=== PATIENT | male | born 1945 | race Hispanic/Latino ===

== ENCOUNTER 2020-04-30 22:40 | Inpatient (IN) | payer MEDICARE ==
[~2020-04-30] VITALS: Ht 165.1 cm; Wt 75.5 kg
[2020-04-30 23:25] LABS: BASOPHILS % (AUTO) 0.2 % (0.0-5.0); HEMATOCRIT 30.2 % (42-54); LYMPHOCYTES % (AUTO) 6.3 % (21.0-51.0); MEAN CORPUSCULAR HEMOGLOBIN 31.3 pg (27.0-33.0); MEAN CORPUSCULAR HGB CONC 33.1 g/dL (32.0-36.0); MEAN CORPUSCULAR VOLUME 94.4 fL (79-99); MONOCYTES % (AUTO) 3.3 % (3.0-13.0); NEUTROPHILS % (AUTO) 89.2 % (40.0-77.0); NUCLEATED RED BLOOD CELLS 0.2 % (0.0-0.19); PLATELET COUNT (AUTO) 183 K/uL (130-400); RED CELL DISTRIBUTION WIDTH 12.6 % (11.0-15.5); WHITE BLOOD COUNT (AUTO) 11.4 K/uL (4.8-10.8)
[2020-04-30 23:50] LABS: INR 0.98 (0.85-1.15); PARTIAL THROMBOPLASTIN TIME 29.6 SEC (26.3-35.5); PROTHROMBIN TIME 10.6 SEC (9.6-11.6)
[2020-05-01 00:08] LABS: ALBUMIN 2.9 g/dL (3.5-5.0); BILIRUBIN,TOTAL 0.4 mg/dL (0.2-1.0); POTASSIUM 5.6 mmol/L (3.5-5.1); TOTAL PROTEIN, SERUM 7.3 g/dL (6.0-8.3)
[2020-05-01 00:14] LABS: CREATININE 8.8 mg/dL (0.5-1.5)
[2020-05-01] MEDS ORDERED: SODIUM CHLORIDE 0.9% 1000ML 1,000 ML IV SCH (02:25)
[2020-05-01] MEDS ORDERED: ERGOCALCIFEROL (VITAMIN D2) 50,000 UNIT CAPSULE PO SCH (02:30)
[2020-05-01] MEDS: AZITHROMYCIN 500MG+NS 250ML 250 ML IV SCH (02:30)
[2020-05-01] MEDS ORDERED: HYDRALAZINE HCL 20 MG/ML VIAL IV PRN (02:30)
[2020-05-01] MEDS: DOXYCYCLINE 100MG+NS 250ML 250 ML IV SCH ×2 (02:30→14:04)
[2020-05-01] MEDS ORDERED: ERGOCALCIFEROL (VITAMIN D2) 50,000 UNIT CAPSULE ONE (02:48)
[2020-05-01] MEDS ORDERED: AZITHROMYCIN 500MG+NS 250ML 250 ML IV ONE (02:52)
[2020-05-01] MEDS ORDERED: DOXYCYCLINE 100MG+NS 250ML 250 ML IV ONE (04:08)
[2020-05-01 04:44] LABS: APPEARANCE,URINE Turbid (CLEAR); BILIRUBIN,URINE Negative (NEGATIVE); COLOR,URINE Yellow (YELLOW); GLUCOSE, URINE (UA) Negative (NEGATIVE); KETONES,URINE Negative (NEGATIVE); LEUKOCYTE ESTERASE ,URINE Negative (NEGATIVE); NITRATE,URINE Negative (NEGATIVE); OCCULT BLOOD,URINE Small (NEGATIVE); PROTEIN,URINE 300 mg/dL (NEGATIVE)
[2020-05-01 04:47] LABS: BASOPHILS % (AUTO) 0.1 % (0.0-5.0); HEMATOCRIT 27.1 % (42-54); LYMPHOCYTES % (AUTO) 7.5 % (21.0-51.0); MEAN CORPUSCULAR HEMOGLOBIN 31.7 pg (27.0-33.0); MEAN CORPUSCULAR HGB CONC 33.2 g/dL (32.0-36.0); MEAN CORPUSCULAR VOLUME 95.4 fL (79-99); NEUTROPHILS % (AUTO) 88.4 % (40.0-77.0); PLATELET COUNT (AUTO) 164 K/uL (130-400); RED BLOOD CELL COUNT(AUTO) 2.84 MIL/uL (4.50-6.20); RED CELL DISTRIBUTION WIDTH 12.7 % (11.0-15.5); WHITE BLOOD COUNT (AUTO) 10.9 K/uL (4.8-10.8)
[2020-05-01 05:04] LABS: ALBUMIN 2.4 g/dL (3.5-5.0); BILIRUBIN,TOTAL 0.4 mg/dL (0.2-1.0); POTASSIUM 5.6 mmol/L (3.5-5.1)
[2020-05-01 05:06] LABS: AMORPHOUS SEDIMENT,UR Moderate /LPF (None Seen); BACTERIA,URINE Few /HPF (None Seen); RBC,URINE 0-1 /HPF (0-1); SQUAMOUS EPITHELIAL CELL,UR 0-2 /HPF (0-2); WBC,URINE 0-1 /HPF (0-1)
[2020-05-01 05:09] LABS: CREATININE 8.6 mg/dL (0.5-1.5)
[2020-05-01 05:32] VITALS: BP 126/45
--- NOTE | 2020-05-01 05:57 | NUR ---
NEW ADMIT INCOMPLETE NEW ADMISSION DATA BASE AND PAST MEDICAL HX IS INCOMPLETE DUE TO: NO PT INFORMATION. PT DROPPED OFF AT ED, PT IS POOR HISTORIAN AND LETHARGIC. CONTACT NUMBER IS DISCONNECTED. COMPLETED INFORMATION TO THE BEST OF MY ABILITY.
[2020-05-01] MEDS: INSULIN HUMULIN R 100 UNIT/ML 3ML SQ SCH ×3 (06:00→17:16)
[2020-05-01 08:14] VITALS: BP 131/53
[2020-05-01] MEDS: 1/2 NORMAL SALINE 1,000 ML IV SCH ×2 (08:45→21:38)
[2020-05-01] MEDS: HEPARIN SODIUM 5000UNIT/ML 1ML VIAL SQ SCH ×3 (09:00→21:35)
[2020-05-01] MEDS ORDERED: ACETYLCYSTEINE 600 MG CAPSULE PO SCH (09:00)
[2020-05-01] MEDS ORDERED: DEXTROSE 5 %-0.45 % NACL 1,000 ML IV ONE (09:31)
[2020-05-01] MEDS: FAMOTIDINE/PF 20 MG/2 ML VIAL IV SCH (10:31)
[2020-05-01] MEDS: ASCORBIC ACID 500 MG TAB PO SCH (10:31)
[2020-05-01] MEDS: SODIUM BICARBONATE 650 MG TAB PO SCH ×2 (10:31→21:09)
[2020-05-01] MEDS: ZINC SULFATE 220 CAPSULE PO SCH (10:31)
[2020-05-01] MEDS: SODIUM POLYSTYRENE SULFONATE 15 GM/60 ML ML RC SCH (10:31)
[2020-05-01] MEDS: METHYLPREDNISOLONE SOD SUCC 40MG/ML 1ML IVP SCH ×3 (10:33→21:09)
[2020-05-01 11:00] LABS: CRP QUANTITATIVE 164.9 mg/L (0.00-9.0)
[2020-05-01 11:41] VITALS: BP 141/80
--- NOTE | 2020-05-01 11:42 | NUR ---
NO "NEXT OF KIN" INFORMATION AVAILABLE. PATIENT UNABLE TO ANSWER QUESTIONS. CALLED EMS AT [phone] AND AFTER SPEAKING WITH DISPATCHER, OBTAINED CONTACT INFORMATION. CALLED NUMBER GIVEN OF PATIENT'S GIRLFRIEND, VALENTINE NEWMAN, . SPOKE WITH VALENTINE AND SHE INFORMED ME THAT PATIENT HAS NO FAMILY LOCALLY, ALL HIS FAMILY IS IN [place]. SHE WILL ATTEMPT TO MAKE CONTACT WITH THEM AND CALL NURSING BACK WITH PHONE NUMBER(S). SHE STATES SHE CALLED EMS DUE TO PATIENT BEING WEAK, NOT EATING AND VERBALIZING NEEDS FOR SEVERAL DAYS. REPORTED OFF TO PRIMARY NURSE, CHRISTOPHER.
--- NOTE | 2020-05-01 11:58 | NUR ---
CHART CHECK COMPLETED. Pt IS A 75 Y.O. MALE ADMITTED SECONDARY TO ACUTE RENAL FAILURE, DELIRIUM, +COVID. Pt HAS A PAST MEDICAL HISTORY SIGNIFICANT FOR DMII, HYPERTENSION, CAD. Pt NPO AT THIS TIME. PLEASE REQUEST FORMAL SKILLED SPEECH/SWALLOW EVALUATION WHEN CURRENT MENTAL STATUS IMPROVES AND Pt IS ABLE TO PARTICIPATE. Addendum: 05/01/20 at 1203 by ROSSY GILES, [facility] Amended: Links added.
--- NOTE | 2020-05-01 15:09 | NUR ---
note attempted to speak to pt, however not awake enough to respond butm he stated he has a girlfriend, call made to girlfriend Jana Kincaid, . states pt resides at home with her, he normally is independent with ambulation and adls. no dme.states does get weak, and lethargic when he gets sick. see dr dimas as an OP. but is not on dialysis. [facility] dc plan is back to home at time of dc. [facility] pt does have some family members in [place],, but [facility] she will try to reach out to them and see if she can get other contact information. . discussed POA/Advanced directives. perhaps once pt is more stable. verbalizes understanding. Addendum: 05/01/20 at 1514 by XIN LAM CM Amended: Links added.
[2020-05-01 16:32] VITALS: BP 126/76
[2020-05-01 20:00] VITALS: BP 132/59
[2020-05-01] MEDS: ACETYLCYSTEINE 20% 200MG/ML 4ML VIAL PO SCH ×2 (21:00→21:09)
[2020-05-02] VITALS: BP 153/72
[2020-05-02] MEDS ORDERED: DOXYCYCLINE 100MG+NS 250ML 250 ML IV ONE (02:29)
[2020-05-02] MEDS: AZITHROMYCIN 500MG+NS 250ML 250 ML IV SCH (02:54)
[2020-05-02] MEDS: DOXYCYCLINE 100MG+NS 250ML 250 ML IV SCH ×2 (03:40→13:52)
[2020-05-02 03:53] LABS: BASOPHILS % (AUTO) 0.1 % (0.0-5.0); HEMATOCRIT 23.4 % (42-54); MEAN CORPUSCULAR HEMOGLOBIN 30.5 pg (27.0-33.0); MEAN CORPUSCULAR HGB CONC 32.5 g/dL (32.0-36.0); PLATELET COUNT (AUTO) 160 K/uL (130-400); RED BLOOD CELL COUNT(AUTO) 2.49 MIL/uL (4.50-6.20); RED CELL DISTRIBUTION WIDTH 12.9 % (11.0-15.5); WHITE BLOOD COUNT (AUTO) 8.1 K/uL (4.8-10.8)
[2020-05-02 04:00] VITALS: BP 113/56
[2020-05-02 04:16] LABS: ALBUMIN 2.1 g/dL (3.5-5.0); BILIRUBIN,TOTAL 0.4 mg/dL (0.2-1.0); CRP QUANTITATIVE 152.9 mg/L (0.00-9.0); PHOSPHORUS 4.4 mg/dL (2.5-4.9); POTASSIUM 4.9 mmol/L (3.5-5.1); TOTAL PROTEIN, SERUM 6.6 g/dL (6.0-8.3)
[2020-05-02 04:40] LABS: CREATININE 8.2 mg/dL (0.5-1.5)
[2020-05-02] MEDS: DEXTROSE 5%-WATER 1,000 ML IV SCH ×2 (05:55→15:41)
[2020-05-02] MEDS: INSULIN HUMULIN R 100 UNIT/ML 3ML SQ SCH ×5 (05:56→20:37)
--- NOTE | 2020-05-02 08:10 | NUR ---
JOURDAN AMAYA NP IS ROUNDING AT THIS TIME.
[2020-05-02] MEDS: SODIUM BICARBONATE 650 MG TAB PO SCH ×2 (08:31→19:43)
[2020-05-02] MEDS: FAMOTIDINE/PF 20 MG/2 ML VIAL IV SCH (08:31)
[2020-05-02] MEDS: ASCORBIC ACID 500 MG TAB PO SCH (08:31)
[2020-05-02] MEDS: ACETYLCYSTEINE 20% 200MG/ML 4ML VIAL PO SCH ×2 (08:31→19:43)
[2020-05-02] MEDS: ZINC SULFATE 220 CAPSULE PO SCH (08:31)
[2020-05-02] MEDS: SODIUM POLYSTYRENE SULFONATE 15 GM/60 ML ML RC SCH (08:32)
[2020-05-02] MEDS: METHYLPREDNISOLONE SOD SUCC 40MG/ML 1ML IVP SCH ×3 (08:32→19:43)
[2020-05-02] MEDS: HEPARIN SODIUM 5000UNIT/ML 1ML VIAL SQ SCH ×3 (08:33→19:44)
[2020-05-02 09:23] VITALS: BP 171/74
[2020-05-02 12:48] VITALS: BP 174/82
[2020-05-02 16:00] VITALS: BP 151/70
[2020-05-02 21:12] VITALS: BP 122/77
[2020-05-03 01:01] VITALS: BP 96/67
[2020-05-03] MEDS: AZITHROMYCIN 500MG+NS 250ML 250 ML IV SCH (01:31)
[2020-05-03] MEDS: DOXYCYCLINE 100MG+NS 250ML 250 ML IV SCH ×2 (01:31→15:33)
[2020-05-03 03:15] LABS: BASOPHILS % (AUTO) 0.1 % (0.0-5.0); HEMATOCRIT 22.7 % (42-54); LYMPHOCYTES % (AUTO) 4.5 % (21.0-51.0); MEAN CORPUSCULAR HEMOGLOBIN 31.5 pg (27.0-33.0); MEAN CORPUSCULAR HGB CONC 34.4 g/dL (32.0-36.0); MEAN CORPUSCULAR VOLUME 91.5 fL (79-99); MONOCYTES % (AUTO) 2.2 % (3.0-13.0); NEUTROPHILS % (AUTO) 92.2 % (40.0-77.0); PLATELET COUNT (AUTO) 181 K/uL (130-400); RED BLOOD CELL COUNT(AUTO) 2.48 MIL/uL (4.50-6.20); RED CELL DISTRIBUTION WIDTH 12.6 % (11.0-15.5); WHITE BLOOD COUNT (AUTO) 11.1 K/uL (4.8-10.8)
[2020-05-03 03:29] LABS: BILIRUBIN,TOTAL 0.5 mg/dL (0.2-1.0); CREATININE 7.6 mg/dL (0.5-1.5); CRP QUANTITATIVE 75.7 mg/L (0.00-9.0); MAGNESIUM 2.7 mg/dL (1.80-2.40); PHOSPHORUS 4.1 mg/dL (2.5-4.9); POTASSIUM 3.9 mmol/L (3.5-5.1); TOTAL PROTEIN, SERUM 6.5 g/dL (6.0-8.3)
[2020-05-03] MEDS: INSULIN HUMULIN R 100 UNIT/ML 3ML SQ SCH ×5 (05:35→20:09)
[2020-05-03 06:10] VITALS: BP 129/73
--- NOTE | 2020-05-03 06:35 | NUR ---
assessment Pt. did not answer me last night with his voice but he did follow instructions. he is on room air sating in the mid 90's. no skin issues. his am blood sugar is 165 no coverage needed. Pt. is still on d5w at 75ml/hr. vitals stable will continue to monitor.
[2020-05-03 08:00] VITALS: BP 146/71
[2020-05-03] MEDS: SODIUM POLYSTYRENE SULFONATE 15 GM/60 ML ML RC SCH (09:17)
[2020-05-03] MEDS: ZINC SULFATE 220 CAPSULE PO SCH (09:17)
[2020-05-03] MEDS: SODIUM BICARBONATE 650 MG TAB PO SCH ×2 (09:17→19:27)
[2020-05-03] MEDS: FAMOTIDINE/PF 20 MG/2 ML VIAL IV SCH (09:17)
[2020-05-03] MEDS: ASCORBIC ACID 500 MG TAB PO SCH (09:17)
[2020-05-03] MEDS: HEPARIN SODIUM 5000UNIT/ML 1ML VIAL SQ SCH ×3 (09:19→19:27)
[2020-05-03] MEDS: ACETYLCYSTEINE 20% 200MG/ML 4ML VIAL PO SCH ×2 (09:22→19:27)
[2020-05-03] MEDS: METHYLPREDNISOLONE SOD SUCC 40MG/ML 1ML IVP SCH ×2 (09:25→19:27)
[2020-05-03] MEDS: DEXTROSE 5%-WATER 1,000 ML IV SCH (09:26)
[2020-05-03 11:03] VITALS: BP 137/69
--- NOTE | 2020-05-03 11:10 | NUR ---
LOUIS BANKS CALL ME AND NOTIFY ME THE SHE FOUND THE PT ON THE FLOOR, IMMEDIATELY PT WAS ASSES AND CHECK, NO LACERATIONS OR ANY TYPE OF INJURES WERE SEEN. PT WAS ASK MULTIPLE QUESTIONS REGARDING THE INCIDENT AND HE VERBALIZED THAT HE DID NOT FALL THAT HE WAS TRYING TO GO TO THE BATHROOM AND WHEN HE STAND UP HE FEELS WEAK AND SLOWLY SIT IN THE FLOOR. WITH THE HELP OF SANG ORTA PT WAS PUT BACK ON BED. CHARGE NURSE AND CARSON ARAGON NP THAT WORK WITH DR. ARREAGA WERE NOTIFY ABOUT THE INCIDENT. PT WILL BE MONITOR FOR CHANGES.
--- NOTE | 2020-05-03 15:09 | NUR ---
contact phone #s partner/girlfriend Jana Kincaid [phone] [place] [phone]
[2020-05-03 15:56] VITALS: BP 142/71
[2020-05-03 20:00] VITALS: BP 166/79
[2020-05-03] MEDS: INSULIN GLARGINE 100 UNITS/ML 10 ML VIAL SQ SCH (20:09)
[2020-05-04 00:22] VITALS: BP 156/69
[2020-05-04] MEDS: AZITHROMYCIN 500MG+NS 250ML 250 ML IV SCH (02:37)
[2020-05-04] MEDS: DOXYCYCLINE 100MG+NS 250ML 250 ML IV SCH ×2 (02:37→14:07)
[2020-05-04] MEDS: INSULIN HUMULIN R 100 UNIT/ML 3ML SQ SCH ×7 (05:11→19:25)
[2020-05-04 05:25] VITALS: BP 137/73
--- NOTE | 2020-05-04 05:52 | NUR ---
ASSESSMENT PATIENT IS ALERT AND ORIENTED TIMES 1 TO SELF. HE DOES COOPERATE THOUGH. HE HAS A BUSCH CATHETER DRAINING CLEAR YELLOW URINE. AM BLOOD SUGAR IS 300 I GAVE HIM COVERAGE. VITALS ARE STABLE WILL CONTINUE TO MONITOR.
[2020-05-04 07:16] LABS: INR 1.07 (0.85-1.15); PARTIAL THROMBOPLASTIN TIME 33.4 SEC (26.3-35.5); PROTHROMBIN TIME 11.5 SEC (9.6-11.6)
[2020-05-04 08:00] VITALS: BP 119/58
[2020-05-04 08:00] LABS: ALBUMIN 2.1 g/dL (3.5-5.0); BILIRUBIN,TOTAL 0.4 mg/dL (0.2-1.0); CREATININE 7.3 mg/dL (0.5-1.5); CRP QUANTITATIVE 49.6 mg/L (0.00-9.0); PHOSPHORUS 4.9 mg/dL (2.5-4.9); POTASSIUM 3.5 mmol/L (3.5-5.1); TOTAL PROTEIN, SERUM 6.2 g/dL (6.0-8.3)
--- NOTE | 2020-05-04 08:00 | NUR ---
am shift assessment.
[2020-05-04] MEDS: SODIUM POLYSTYRENE SULFONATE 15 GM/60 ML ML RC SCH (08:45)
[2020-05-04] MEDS: HEPARIN SODIUM 5000UNIT/ML 1ML VIAL SQ SCH ×3 (09:00→19:55)
--- NOTE | 2020-05-04 09:00 | NUR ---
DR. HARRIS IN TO SEE PT. FROM HIS STANDPOINT PT. CAN BE DISCHARGED WHEN PRIMARY IS READY, PT. REFUSING DIALYSIS, AT TIMES PER OTHER ATTENDING NURSES, ALSO REFUSES SCHEDULED MEDICATIONS..
[2020-05-04] MEDS: ACETYLCYSTEINE 20% 200MG/ML 4ML VIAL PO SCH ×2 (10:09→19:53)
[2020-05-04] MEDS: SODIUM BICARBONATE 650 MG TAB PO SCH ×2 (10:09→19:54)
[2020-05-04] MEDS: METHYLPREDNISOLONE SOD SUCC 40MG/ML 1ML IVP SCH ×2 (10:09→19:52)
[2020-05-04] MEDS: FAMOTIDINE/PF 20 MG/2 ML VIAL IV SCH (10:09)
[2020-05-04] MEDS: ASCORBIC ACID 500 MG TAB PO SCH (10:10)
[2020-05-04] MEDS: ZINC SULFATE 220 CAPSULE PO SCH (10:10)
[2020-05-04 12:00] VITALS: BP 143/74
--- NOTE | 2020-05-04 12:53 | NUR ---
GOT OUT OF BED AND ALMOST FELL, VERY UNSTEADY ON HIS FEET, COUGHING AND SOB.
--- NOTE | 2020-05-04 15:00 | NUR ---
DR CORREA IN TO SEE PT. PT. DID NOT CO OPERATE, NO ORDERS GIVEN.
[2020-05-04 16:00] VITALS: BP 144/62
--- NOTE | 2020-05-04 18:00 | NUR ---
MOVED TO ROOM 406 EARLIER FOR CLOSER MONITORING.
[2020-05-04 19:32] VITALS: BP 165/77
[2020-05-04] MEDS: INSULIN GLARGINE 100 UNITS/ML 10 ML VIAL SQ SCH (19:56)
[2020-05-05] VITALS (7 sets, daily range): BP systolic 148–159; BP diastolic 66–94
[2020-05-05] MEDS: DOXYCYCLINE 100MG+NS 250ML 250 ML IV SCH (00:55)
[2020-05-05] MEDS: AZITHROMYCIN 500MG+NS 250ML 250 ML IV SCH (00:55)
--- NOTE | 2020-05-05 05:13 | NUR ---
assessment patient responded a few times to me last night. he did follow instructions. iv abx was given throughout the night. patient didnt seem to sleep much. blood sugar last night was 136 no coverage needed. vitals stable will continue to monitor.
[2020-05-05] MEDS: INSULIN HUMULIN R 100 UNIT/ML 3ML SQ SCH ×7 (05:33→21:00)
[2020-05-05] MEDS: SODIUM POLYSTYRENE SULFONATE 15 GM/60 ML ML RC SCH (07:51)
[2020-05-05] MEDS: ASCORBIC ACID 500 MG TAB PO SCH (09:19)
[2020-05-05] MEDS: METHYLPREDNISOLONE SOD SUCC 40MG/ML 1ML IVP SCH ×2 (09:19→20:00)
[2020-05-05] MEDS: FAMOTIDINE/PF 20 MG/2 ML VIAL IV SCH (09:19)
[2020-05-05] MEDS: ZINC SULFATE 220 CAPSULE PO SCH (09:19)
[2020-05-05] MEDS: SODIUM BICARBONATE 650 MG TAB PO SCH ×2 (09:19→20:00)
[2020-05-05] MEDS: ACETYLCYSTEINE 20% 200MG/ML 4ML VIAL PO SCH ×2 (09:20→20:00)
[2020-05-05] MEDS: HEPARIN SODIUM 5000UNIT/ML 1ML VIAL SQ SCH ×3 (09:43→20:01)
--- NOTE | 2020-05-05 10:19 | NUR ---
RD NOTIFICATION Pt admitted with Acute Renal Failure, Delirium, Positive COVID. Pt refusal of Hemodialysis. Current 75gm CC, Puree diet order. WBC 11.1, Na 158, BUN 148, Cr 7.3, GFR 8, BG 324, Alb 2.1. Vitamin C, Zinc in place, steroid medication, antibiotics in place. Recommend modify to 60gm, Renal Non Dialysis, Puree diet order Recommend 60mL ProMod QD Recommend 1500-2000mL Free H2O Daily. RD to monitor for fluid retention. Please notify as additional nutrition concerns arise. Thank you.
[2020-05-05] MEDS ORDERED: PHARMACY COMMUNICATION MISC SCH (15:45)
[2020-05-05] MEDS ORDERED: DOXYCYCLINE HYCLATE 100 MG TABLET PO SCH (17:00)
[2020-05-05] MEDS: INSULIN GLARGINE 100 UNITS/ML 10 ML VIAL SQ SCH (21:06)
[2020-05-06] VITALS (7 sets, daily range): BP systolic 117–177; BP diastolic 62–91
[2020-05-06] MEDS: AZITHROMYCIN 500MG+NS 250ML 250 ML IV SCH (01:38)
--- NOTE | 2020-05-06 04:15 | NUR ---
ASSESSMENT PT ALERT AND ORIENTED TIMES 1. PT. DID NOT VERBALIZE TONIGHT. PT. PM BLOOD SUGAR WAS 115 NO COVERAGE NEEDED. PT. PULLED 2 IV'S OUT TONIGHT. PATIENT MOVED TO ROOM 203 FOR SITTER NEED. PT. ON ROOM AIR SATING MID 90'S. BUSCH CATHETER TO CLEAR YELLOW URINE. VITALS STABLE WILL CONTINUE TO MONITOR.
[2020-05-06 04:43] LABS: HEMATOCRIT 26.5 % (42-54); MEAN CORPUSCULAR HEMOGLOBIN 30.8 pg (27.0-33.0); MEAN CORPUSCULAR HGB CONC 34.3 g/dL (32.0-36.0); MEAN CORPUSCULAR VOLUME 89.8 fL (79-99); NUCLEATED RED BLOOD CELLS 0.2 % (0.0-0.19); PLATELET COUNT (AUTO) 214 K/uL (130-400); RED BLOOD CELL COUNT(AUTO) 2.95 MIL/uL (4.50-6.20); RED CELL DISTRIBUTION WIDTH 12.7 % (11.0-15.5); WHITE BLOOD COUNT (AUTO) 12.4 K/uL (4.8-10.8)
--- NOTE | 2020-05-06 04:57 | NUR ---
TRANSFER PT RECEIVED TO ROOM 203 AWAKE AND ALERT ON RA, UNABLE TO ASSESS ORIENTATION WILL NOT STATE NAME BUT ANSWERS SOME YES/NOW QUESTIONS HE DENIES PAIN. TELE ON. BUSCH IN PLACE DRAINING CLEAR YELLOW URINE. #22 TO R AC CDI, REINFORCED WITH KERLEX PT HAS PULLED OUT TWO IN THE LAST 12 HOURS. CALL MENARD IN REACH BED ALARM ON PT IN LINE OF SIGHT OF SITTER.
[2020-05-06 04:59] LABS: BAND NEUTROPHILS % (MANUAL) 1 % (0-2); LYMPHOCYTES % (MANUAL) 4 % (22-44); MONOCYTES % (MANUAL) 2 % (2-9); SEGMENTED NEUTROPHILS % 93 % (40-70)
[2020-05-06 05:02] LABS: MAN.DIFF COMMENT-IMPRESSION MANUAL DIFFERENTIAL; PLATELET MORPHOLOGY COMMENT ADEQUATE
[2020-05-06 05:12] LABS: INR 1.09 (0.85-1.15); PARTIAL THROMBOPLASTIN TIME 28.1 SEC (26.3-35.5); PROTHROMBIN TIME 11.7 SEC (9.6-11.6)
[2020-05-06 05:16] LABS: CREATININE 6.4 mg/dL (0.5-1.5); PHOSPHORUS 4.4 mg/dL (2.5-4.9); POTASSIUM 3.2 mmol/L (3.5-5.1)
[2020-05-06] MEDS: INSULIN HUMULIN R 100 UNIT/ML 3ML SQ SCH ×7 (05:50→20:30)
[2020-05-06] MEDS: SODIUM POLYSTYRENE SULFONATE 15 GM/60 ML ML RC SCH (08:45)
[2020-05-06] MEDS: FAMOTIDINE/PF 20 MG/2 ML VIAL IV SCH (08:58)
[2020-05-06] MEDS: ACETYLCYSTEINE 20% 200MG/ML 4ML VIAL PO SCH ×2 (08:58→21:00)
[2020-05-06] MEDS: SODIUM BICARBONATE 650 MG TAB PO SCH ×2 (08:58→21:00)
[2020-05-06] MEDS: METHYLPREDNISOLONE SOD SUCC 40MG/ML 1ML IVP SCH ×2 (08:59→21:28)
[2020-05-06] MEDS: ASCORBIC ACID 500 MG TAB PO SCH (08:59)
[2020-05-06] MEDS: ZINC SULFATE 220 CAPSULE PO SCH (08:59)
[2020-05-06] MEDS: DOXYCYCLINE HYCLATE 100 MG TABLET PO SCH ×2 (08:59→21:28)
[2020-05-06] MEDS: HEPARIN SODIUM 5000UNIT/ML 1ML VIAL SQ SCH ×3 (09:07→21:24)
[2020-05-06] MEDS ORDERED: DEXTROSE 5%-WATER 1,000 ML IV SCH (11:45)
--- NOTE | 2020-05-06 12:20 | NUR ---
Telephone call to pt's brother; left message with spouse Rosina to contact this worker.
--- NOTE | 2020-05-06 12:54 | NUR ---
UPDATE- VALENTINE HESTER (PATIENT'S SIZING SPONGER) UPDATED ON PATIENT STATUS. STATES SHE HAS SPOKEN TO THE PATIENT'S BROTHER AND ARE IN AGREEMENT THAT PATIENT NEEDS TO START ON DIALYSIS. PRIMARY NURSE UPDATED ON THIS REQUEST.
--- NOTE | 2020-05-06 16:35 | NUR ---
DC PLAN RECEIVED ORDER FOR SNF. LOOKED AT CONSULT NOTES. SAID PATIENT NEEDS DIALYSIS OR HOSPICE. LABS NOT APPROPRIATE AT THIS TIME FOR DC. Addendum: 05/06/20 at 1636 by TARAS MORGAN RN CM Amended: Links added.
[2020-05-06] MEDS ORDERED: DEXTROSE 50%-WATER 50 ML DISP.SYRIN IV PRN (17:15)
[2020-05-06] MEDS ORDERED: GLUCAGON 1MG KIT 1 MG ML IM PRN (17:15)
--- NOTE | 2020-05-06 20:42 | NUR ---
BS BLOOD SUGAR 101 PT HAS LANTUS 20 UNITS SCHEDULED HAS HAD POOR PO INTAKE AND HAD TWO LOW BLOOD SUGARS TODAY 54 THIS MORNING AND 47 AT [place] TO TOWER HAND PROVIDER TO VERIFY IF TO HOLD OR DECREASE LANTUS AWAITING RETURN CALL.
[2020-05-06] MEDS: INSULIN GLARGINE 100 UNITS/ML 10 ML VIAL SQ SCH (21:00)
[2020-05-07] VITALS (7 sets, daily range): BP systolic 111–181; BP diastolic 48–97
[2020-05-07] MEDS: AZITHROMYCIN 500MG+NS 250ML 250 ML IV SCH (03:29)
--- NOTE | 2020-05-07 04:54 | NUR ---
SHIFT SUMMARY PT AWAKE AND ALERT ON RA, UNABLE TO ASSESS ORIENTATION WILL NOT STATE NAME BUT ANSWERS SOME YES/NOW QUESTIONS HE DENIES PAIN. TELE ON. BUSCH IN PLACE DRAINING CLEAR YELLOW URINE. #22 TO R FA SALINE LOCKED. BILATERAL MITTENS IN PLACE, REMOVED FOR SKIN AND CIRCULATION CHECKS. CALL MENARD IN REACH BED ALARM ON 1:1 AT BEDSIDE. NO CHANGES FROM DOCUMENTED BASELINE SHIFT ASSESSMENT.
[2020-05-07] MEDS: HEPARIN SODIUM 5000UNIT/ML 1ML VIAL SQ SCH (06:11)
[2020-05-07] MEDS: INSULIN HUMULIN R 100 UNIT/ML 3ML SQ SCH (06:53)
[2020-05-07] MEDS ORDERED: DEXTROSE 5%-WATER 1,000 ML IV SCH (07:45)
--- NOTE | 2020-05-07 08:45 | NUR ---
SPOKE WITH PATIENTS NEPHEW BELLA SALMON REGARDING PATIENTS CURRENT STATUS. HE STATED HE REQUESTED TO SPEAK WITH THE PATIENT. CALL TRANSFERRED TO PATIENTS ROOM, PATIENT UNABLE TO HOLD A CONVERSATION AT THIS TIME. PATIENT ONLY MUMBLES, DIFFICULT TO UNDERSTAND WHAT HE IS TRYING TO SAY. AFTER THIS PATIENTS NEPHEW STATED HE WILL GO AHEAD WITH DNR AND GOAL AT THIS TIME WILL BE KEEPING HIM COMFORTABLE. HE REQUESTED TO SPEAK WITH DR. ARREAGA ONCE MORE. DR. ARREAGA MADE AWARE PENDING FURTHER ORDERS
[2020-05-07] MEDS ORDERED: DEXAMETHASONE SOD PHOSPHATE 4 MG/ML 1ML VIAL IVP PRN (09:00)
[2020-05-07] MEDS ORDERED: ACETAMINOPHEN 650 MG SUPPOSITORY RC PRN (09:00)
[2020-05-07] MEDS ORDERED: ARTIFICAL TEARS SOL 15 ML OU PRN ×2 (09:00→13:15)
[2020-05-07] MEDS ORDERED: HALOPERIDOL 1 MG TABLET PO PRN (09:00)
[2020-05-07] MEDS ORDERED: ONDANSETRON HCL 4 MG/2 ML VIAL IVP PRN (09:00)
[2020-05-07] MEDS ORDERED: LORAZEPAM 2 MG/ML 1 ML VIAL IVP PRN (09:00)
[2020-05-07] MEDS ORDERED: HALOPERIDOL LACTATE 5 MG/ML VIAL IV PRN (09:00)
[2020-05-07 09:01] LABS: ALBUMIN 2.4 g/dL (3.5-5.0); BILIRUBIN,TOTAL 0.8 mg/dL (0.2-1.0); CREATININE 6.5 mg/dL (0.5-1.5); MAGNESIUM 2.7 mg/dL (1.80-2.40); POTASSIUM 3.5 mmol/L (3.5-5.1); THYROID STIMULATING HORMONE 0.2 uIU/mL (0.36-3.74); TOTAL PROTEIN, SERUM 7.1 g/dL (6.0-8.3)
[2020-05-07] MEDS ORDERED: MORPHINE SULFATE 2 MG/ML 1ML SYG IVP PRN (09:15)
[2020-05-07] MEDS ORDERED: LOPERAMIDE HCL 2 MG CAP PO PRN (09:15)
[2020-05-07] MEDS ORDERED: LOPERAMIDE HCL 2 MG CAP PO SCH (11:10)
[2020-05-07] MEDS ORDERED: HYDRALAZINE HCL 20 MG/ML VIAL IV PRN (11:45)
[2020-05-07] MEDS ORDERED: HYDRALAZINE HCL 20 MG/ML VIAL ONE (12:03)
[2020-05-07] MEDS: SCOPOLAMINE HYDROBROMIDE 1 EACH ADH..PATCH TD SCH (12:04)
[2020-05-07] MEDS ORDERED: INSULIN GLARGINE 100 UNITS/ML 10 ML VIAL SQ SCH (21:00)
[2020-05-08 03:07] VITALS: BP 158/88
[2020-05-08 07:00] VITALS: BP 128/63
--- NOTE | 2020-05-08 10:16 | NUR ---
RD FOLLOW UP Pt with 60gm, Renal Non-Dialysis diet order in place. Pt with renal failure, refusal of renal replacement therapy. Pt with comfort measures in place. Severe dehydration. Recommend 5764-6660 ml free water for hydration, as medically feasible Recommend Nepro with meal as medically feasible RD to continue to monitor.
[2020-05-08 12:00] VITALS: BP 109/64
--- NOTE | 2020-05-08 14:09 | NUR ---
GÓMEZ ARANDA SPOKE TO BROTHER MOY [phone] ARREAGA. BROTHER SAID THAT THEY ARE WILLING TO GO TO HOSPICE BUT THEY WANT BROTHERS TO SEE PATIENT. THEY ARE IN [place] AND ASKING FOR A LETTER. LETTER SIGNED BY DR. ARREAGA PENDING FAMILY INFO. LET BROTHER KNOW THAT NEED SISTER NAME, PHONE, ID/ AND THAT THERE WAS NO GUARANTEE THAT THEY WOULD BE LET IN. TRIED TO CALL HOUSE TO LET THEM KNOW OF CONVERSATION NO ANSWER. Addendum: 05/08/20 at 1416 by TARAS MORGAN RN CM Amended: Links added.
[2020-05-08 16:00] VITALS: BP 145/70
--- NOTE | 2020-05-08 17:00 | NUR ---
PATIENT'S GIRLFRIEND VALENTINE Raya IS VISITING VIA WINDOW AT THIS TIME.
--- NOTE | 2020-05-08 18:45 | NUR ---
AWAITING HOSPICE ARRANGEMENTS. PT IS DNR. ENHANCED ISOLATION MAINTAINED THROUGHOUT SHIFT. 1:[address]
[2020-05-08 19:39] VITALS: BP 118/82
[2020-05-09] VITALS (7 sets, daily range): BP systolic 102–181; BP diastolic 55–73
--- NOTE | 2020-05-09 00:43 | NUR ---
Abhilash Garber called about pts condition and call was returned at this time however no answer; message left for return call; pt has been resting in bed throughout shift without change; no distress noted at this time. Joe RN
--- NOTE | 2020-05-09 14:33 | NUR ---
PHONE CALL WITH BROTHERS SW contacted patient's brother Abhilash Garber, to follow up regarding decision for hospice. Patient's brother Abhilash stated that family was asking about a kidney transplant for patient. SW educated patient's brother on kidney transplant process. Patient's brother, Abhilash, asked SW to call patient's other brother, Shahram Garber, and explain. SW contacted patient's brother, Shahram, and explained kidney transplant process. Patient's brother, Shahram stated that family was waiting to speak to Dr. Oswald about transplant before making decision to proceed with hospice. SW will follow up with patient's family once they have spoken to MD. JAK, Savanna Chang, notified of above information.
[2020-05-10 04:11] VITALS: BP 101/63
[2020-05-10 07:33] VITALS: BP 85/50
[2020-05-10] MEDS: SCOPOLAMINE HYDROBROMIDE 1 EACH ADH..PATCH TD SCH (10:43)
[2020-05-10 11:45] VITALS: BP 103/46
--- NOTE | 2020-05-10 13:55 | NUR ---
PHONE CALL WITH BROTHER LELE spoke with patient's brother, Abhilash Garber, about decision regarding hospice. Brother stated that he was still waiting to speak to MD about transplant possibility and now he wanted to also ask if patient could travel in effort to send patient to [place] where he lives. SW educated brother on transplant process and time involved. SW also educated brother on all discharge options and reminded him that patient would need help from family upon discharge whether it was under hospice or not. Patient's brother stated that he understood and would talk to the rest of the family. LELE will follow up once patient's brother has opportunity to speak to MD and has additional questions answered.
[2020-05-10 15:30] VITALS: BP 97/55
--- NOTE | 2020-05-10 17:38 | NUR ---
SECOND PHONE CALL FROM BROTHER LELE received a second call from patient's brother, Abhilash Garber. He stated that he was talking to family about everyone helping with care of patient and family wants patient to apply for Medicaid in effort to get help with providers. LELE explained to brother that application can be processed but it will take at least 30-45 days. LELE explained that family will need to make arrangements of who will help care for patient while process is completed. Patient's brother stated that he was in [place] and is not sure if he or other family members could come to care for patient. LELE explained that patient could be sent to nursing facility but he would not be able to have any visitors. LELE also mentioned hospice home if family decides on hospice option. Patient's brother stated that he will speak to MD about possibly having patient sent to [place]. LELE explained that patient would need to be cleared by MD to travel and family would be responsible for transportation cost. Patient's brother stated that he will continue to speak with family and MD and follow up with LELE Watts on 05/11/2020.
[2020-05-10 19:34] VITALS: BP 84/54
--- NOTE | 2020-05-11 02:03 | NUR ---
DNR patient at 00:45 and pronounced by warehouse worker Jesus Alberto. All parties informed, including pt brother Mr Mike Garber, Dr. Oswald pt PCP through [facility], and Ms. Caryn Hanson at Donor referral line: [phone], with referance #[id number]. Patient belongings included a pants, shirt, and medicaid cards, sent down with body. Ms. Jana Felder (girlfriend) informed to bead picker belongs as needed. POC completed.
--- NOTE | 2020-05-11 10:20 | NUR ---
Pt's Brother contacted this worker and stated that he previously elected [facility], that he phoned them this morning re-arrangements and was told that they are pending call from hospital. SW contacted House Supervisior Kamryn and made aware.
== END 2020-05-11 00:45 | disposition expired | DRG 177 ==
LOC: EDH 22:40 → EDHIP 05-01 02:25 → 4CH 05-01 06:34 → 4BH 05-01 17:58 → 2AH 05-06 04:22
PROVIDERS: ADMIT Internal Medicine; ATTEND Internal Medicine
DX: U07.1 COVID-19 (principal); G93.41 Metabolic encephalopathy; G04.90 Encephalitis and encephalomyelitis, unspecified; N18.6 End stage renal disease; J12.89 Other viral pneumonia; N17.9 Acute kidney failure, unspecified; E87.0 Hyperosmolality and hypernatremia; E87.2 Acidosis; I12.0 Hypertensive chronic kidney disease with stage 5 chronic kidney disease or end stage renal disease; E87.5 Hyperkalemia; D64.9 Anemia, unspecified; E11.22 Type 2 diabetes mellitus with diabetic chronic kidney disease; F03.90 Unspecified dementia, unspecified severity, without behavioral disturbance, psychotic disturbance, mood disturbance, and anxiety; I25.10 Atherosclerotic heart disease of native coronary artery without angina pectoris; Z66 Do not resuscitate; Z91.15 Patient's noncompliance with renal dialysis; Z51.5 Encounter for palliative care; R62.7 Adult failure to thrive; R53.81 Other malaise
CPT/HCPCS: 36415; 70450; 71045; 74176; 76770; 80048; 80053; 81001; 82570; 82728; 82948; 83540; 83550; 83605; 83615; 83690; 83735; 84100; 84145; 84300; 84443; 84484; 85025; 85378; 85610; 85730; 86140; 86850; 86900; 86901; 87040; 87426; 87804; 93005; G0378; J0360; J0456; J1644; J1815; J2920; J3490; J7042; J7070; J7608; U0003